=== PATIENT | male | born 1995 | race Caucasian/White ===

== ENCOUNTER 2019-03-18 05:41 | Emergency (ER) | payer OTHER ==
[~2019-03-18] VITALS: Ht 175.3 cm; Wt 79.5 kg
[2019-03-18] MEDS ORDERED: PERTUSS(ACELL),DIPH,TET VAC/PF 0.5 ML VIAL IM ONE (06:30)
[2019-03-18] MEDS ORDERED: ACETAMINOPHEN 500 MG TABLET PO ONE (06:30)
[2019-03-18] MEDS ORDERED: LIDOCAINE 1% 10 ML VIAL INJ ONE (07:45)
[2019-03-18 10:04] VITALS: BP 115/65
== END 2019-03-18 10:02 | disposition home or self-care (01) ==
LOC: EMS 05:41
DX: S91.211A Laceration without foreign body of right great toe with damage to nail, initial encounter (principal); S00.83XA Contusion of other part of head, initial encounter; S00.11XA Contusion of right eyelid and periocular area, initial encounter; S70.312A Abrasion, left thigh, initial encounter; Z88.0 Allergy status to penicillin; W25.XXXA Contact with sharp glass, initial encounter; Y93.89 Activity, other specified; Y92.89 Other specified places as the place of occurrence of the external cause; Y99.8 Other external cause status
CPT/HCPCS: 12001; 70450; 70486; 73630; 90471; 90715; 99284; J3490

== ENCOUNTER 2019-03-30 11:25 | Emergency (ER) | payer OTHER ==
[~2019-03-30] VITALS: Ht 177.8 cm; Wt 84.1 kg
[2019-03-30 13:00] VITALS: BP 116/76
== END 2019-03-30 13:23 | disposition home or self-care (01) ==
LOC: EMS 11:26
DX: S91.211D Laceration without foreign body of right great toe with damage to nail, subsequent encounter (principal); R03.0 Elevated blood-pressure reading, without diagnosis of hypertension; Z48.02 Encounter for removal of sutures; Z88.0 Allergy status to penicillin; W25.XXXD Contact with sharp glass, subsequent encounter